=== PATIENT | female | born 1935 | race Caucasian/White ===

== ENCOUNTER → 2016-11-11 | Outpatient (CLI) | payer OTHER, BC ==
--- NOTE | 2016-11-11 16:26 | MA ---
Screening Digital Mammogram Clinical Indications: Routine screening. Sister with history breast cancer around age 66 Technique: Standard cephalocaudal and mediolateral oblique projections are obtained. This examinati on is processed by the [employer] computer aided detection system. Comparison: October 17, 2015; October 11, 2014; and studies dating back to March 26, 2010. Breast density: B; There are scattered areas of fibroglandular density. Findings: CAD was reviewed. No suspicious findings are identified. There are no new masses, new clus ters of microcalcifications, or significant axillary lymphadenopathy. Impression: Negative mammogram. BI-RADS 1. Recommendation: Routine screening is recommended in one year. [facility] will send a result letter to the patient. Negative mammography should not preclude additional workup of a clinically suspicious finding. The patient's information is entered into a reminder system with a target due date for her next mammo gram.
== END ==
LOC: BRMIMAGING 11:12
DX: Z12.31 Encounter for screening mammogram for malignant neoplasm of breast (principal); Z80.3 Family history of malignant neoplasm of breast
CPT/HCPCS: G0202

== ENCOUNTER → 2017-11-30 | Outpatient (CLI) | payer OTHER, BC | LOC: BRMIMAGING 14:41 | DX: Z12.31 Encounter for screening mammogram for malignant neoplasm of breast (principal); Z80.3 Family history of malignant neoplasm of breast ==

== ENCOUNTER → 2018-12-01 | Outpatient (CLI) | payer OTHER, BC | LOC: BRMIMAGING 13:14 | DX: Z12.31 Encounter for screening mammogram for malignant neoplasm of breast (principal); Z80.3 Family history of malignant neoplasm of breast ==